=== PATIENT | female | born 1955 | race Caucasian/White ===

== ENCOUNTER 2017-07-09 08:09 | Day surgery (SDC) | payer OTHER ==
[~2017-07-09] VITALS: Ht 177.8 cm; Wt 114.9 kg
[~2017-07-09 08:09] MED LIST: SODIUM CHLORIDE 0.9% 1000ML 1,000 ML IV ONE
[2017-07-09 09:09] VITALS: BP 111/67
[2017-07-09] MEDS ORDERED: PROPOFOL 10 MG/ML 20ML VIAL IV ONE (10:03)
[2017-07-09 10:35] VITALS: BP 125/72
[2017-07-09 10:43] VITALS: BP 126/71
[2017-07-09] MEDS ORDERED: PANT40TA PO (10:45)
== END 2017-07-09 11:10 | disposition home or self-care (01) ==
LOC: ENDO 08:09 → DAH 08:09 → ENDO 11:10
PROVIDERS: ATTEND Internal Medicine Gastroenterology
DX: Z12.11 Encounter for screening for malignant neoplasm of colon (principal); Q43.8 Other specified congenital malformations of intestine; K21.0 Gastro-esophageal reflux disease with esophagitis; I10 Essential (primary) hypertension; D64.9 Anemia, unspecified; G43.909 Migraine, unspecified, not intractable, without status migrainosus; F32.9 Major depressive disorder, single episode, unspecified; Z79.899 Other long term (current) drug therapy; Z98.890 Other specified postprocedural states; Z82.49 Family history of ischemic heart disease and other diseases of the circulatory system; Z88.0 Allergy status to penicillin; Z88.8 Allergy status to other drugs, medicaments and biological substances
CPT/HCPCS: 45378; 43235; A4606; J2704; J7030